=== PATIENT | female | born 1970 | race Caucasian/White ===

== ENCOUNTER → 2017-11-12 | Outpatient (CLI) | payer OTHER | LOC: FIMAGING 12:16 | PROVIDERS: ATTEND Specialist | DX: Z12.31 Encounter for screening mammogram for malignant neoplasm of breast (principal); Z80.3 Family history of malignant neoplasm of breast ==

== ENCOUNTER 2017-11-24 13:16 | Emergency (ER) | payer OTHER ==
[2017-11-24 13:23] VITALS: TEMP 97.3; O2SAT 99
[2017-11-24] MEDS ORDERED: OXYCODONE/APAP 5/325 TAB PO ONE ×2 (13:25→14:24)
--- NOTE | 2017-11-24 13:37 | EDPHY ---
H & P Stated Complaint: fell hiking lacies/l elbow inj Time Seen by Provider: 11/24/17 13:29 HPI/ROS: CHIEF COMPLAINT: Left elbow injury HISTORY OF PRESENT ILLNESS: 47-year-old left hand dominant female arrives via private vehicle complaining of acute left elbow pain. She was hiking, slipped on ice landed directly onto her left elbow and felt immediate pain. She was able to self extricate and ambulate an arrives via private vehicle. Denies paresthesia. She has reproducible pain with range of motion. Denies proximal distal pain or injury. Denies head injury. Denies lower extremity injury. REVIEW OF SYSTEMS: A ten point review of systems was performed and is negative with the exception of the items mentioned in the HPI PAST MEDICAL/SURGICAL HISTORY: no anticoagulant use, no relevant medical/ surgical history SOCIAL HISTORY: denies alcohol use at time of incident PHYSICAL EXAM 1) GENERAL: Well-developed, well-nourished, alert and oriented. Answering questions appropriately. 2) HEAD: Normocephalic, atraumatic 3) HEENT: Pupils equal, round, reactive to light bilaterally.. 4) NECK: No cervical collar is on. Posterior cervical spine is nontender, no stepoff, no effusion. Full range of motion which does not elicit any midline cervical spine pain, no posterior midline tenderness, no step-off. 5) LUNGS: Clear to auscultation bilaterally, no wheezes, no rhonchi, no retractions. 6) HEART: [Regular rate and rhythm, 7) ABDOMEN: No guarding, no rebound, no focal tenderness, no peritoneal signs, no signs of trauma, no ecchymosis 8) MUSCULOSKELETAL: Left upper extremity: Skin is intact. There is a deformity and tenderness to palpation dorsal left elbow. Keeping elbow flexed at 90 degrees unable or unwilling to flex or extend beyond the secondary to pain. Distal radial ulnar median nerve function intact. Proximally distally nontender. Otherwise, Moving all extremities, no focal areas of tenderness, no obvious trauma. 9) BACK: No midline vertebral tenderness, no fluctuance, no step-off, no obvious trauma, no visual or palpable abnormality. 10) SKIN: No laceration. No abrasion DIFFERENTIAL DIAGNOSIS: In no particular include but limited to fracture, sprain, strain, dislocation - Personal History LMP (Females 10-55): 15-21 Days Ago Current Tetanus/Diphtheria Vaccine: Unsure - Medical/Surgical History Hx Asthma: No Hx Chronic Respiratory Disease: No Hx Diabetes: No Hx Cardiac Disease: No Hx Renal Disease: No Hx Cirrhosis: No Hx Alcoholism: No Hx HIV/AIDS: No Hx Splenectomy or Spleen Trauma: No Other PMH: denies - Social History Smoking Status: Never smoked Constitutional: Initial Vital Signs Temperature (C) 36.3 C 11/24/17 13:20 Heart Rate 57 L 11/24/17 13:20 Respiratory Rate 18 11/24/17 13:20 Blood Pressure 117/86 H 11/24/17 13:20 O2 Sat (%) 99 11/24/17 13:20 O2 Delivery Mode Room Air Allergies/Adverse Reactions: No Known Allergies Allergy (Unverified 11/24/17 13:20) Home Medications: Medication Instructions Recorded oxyCODONE/APAP 5/325 [Percocet 1 tab PO Q6 #10 tab 11/24/17 5/325] Medical Decision Making - Diagnostics Imaging Results: Imaging Impressions Elbow X-Ray 11/24/17 13:23 Impression: Displaced transverse olecranon process fracture. Images myself ED Course/Re-evaluation: 1:52 p.m.: Phone consultation with TACHO Swanson with Dr. Caleb Lucio who will review the patient's images and call me back 2:19 p.m.: Phone call from TACHO Swanson, orthopedics who recommended splinting, non emergent surgery, they would like to the patient the office on Sunday ( today is Sunday). Plan will be placement in a all posterior Ortho Glass long arm splint, oral analgesia, discharged with usual and customary orthopedic precautions. Patient has been re-evaluated, shows no evidence of compartment syndrome. - Data Points Medications Given: Discontinued Medications Fentanyl (Sublimaze) 100 mcg IVP EDNOW ONE Stop: 11/24/17 14:08 Last Admin: 11/24/17 14:24 Dose: Not Given Oxycodone/Acetaminophen (Percocet 5/325) 1 tab PO EDNOW ONE Stop: 11/24/17 13:26 Last Admin: 11/24/17 13:27 Dose: 1 tab Oxycodone/Acetaminophen (Percocet 5/325) 1 tab PO EDNOW ONE Stop: 11/24/17 14:25 Last Admin: 11/24/17 14:27 Dose: 1 tab Departure - Departure Disposition: Home, Routine, Self-Care Clinical Impression: Fall from slipping on ice Qualifiers: Encounter type: initial encounter Qualified Code(s): W00.9XXA - Unspecified fall due to ice and snow, initial encounter Fracture of left olecranon process Qualifiers: Encounter type: initial encounter Fracture type: closed Qualified Code(s): S52.022A - Displaced fracture of olecranon process without intraarticular extension of left ulna, initial encounter for closed fracture Condition: Good Instructions: Elbow Fracture (ED) Additional Instructions: Return to the ER immediately if you experience discoloration, have worsening pain, numbness, tingling, or any other symptoms that concern you. If you received x-rays in the emergency department today, be advised, that ligamentous , tendon, muscular, and other non-bony injury cannot be fully ruled out. Try to keep your affected extremity elevated above the level of your chest, and keep cold packs on the affected area, for the next 48 hours. Referrals: Caleb Lucio MD [Medical Doctor] - 11/26/17 (Call Dr. Caleb Lucio office on Sunday to be seen on Sunday.) Prescriptions: oxyCODONE/APAP 5/325 [Percocet 5/325] 1 tab PO Q6 #10 tab
[2017-11-24] MEDS ORDERED: fentaNYL 100 MCG/2 ML INJ IVP ONE (14:07)
[2017-11-24 15:02] VITALS: BP 128/88; PULSE 76; RESP 16
== END 2017-11-24 15:02 | disposition home or self-care (01) ==
DX: S52.022A Displaced fracture of olecranon process without intraarticular extension of left ulna, initial encounter for closed fracture (principal); W00.9XXA Unspecified fall due to ice and snow, initial encounter; Y99.8 Other external cause status; Y93.01 Activity, walking, marching and hiking

== ENCOUNTER → 2018-11-14 | Outpatient (CLI) | payer OTHER | LOC: FIMAGING 08:17 | PROVIDERS: ATTEND Specialist | DX: Z12.31 Encounter for screening mammogram for malignant neoplasm of breast (principal); Z80.3 Family history of malignant neoplasm of breast ==